=== PATIENT | female | born 1940 | race African-American/Black ===

== ENCOUNTER → 2016-05-15 | Outpatient (CLI) | payer OTHER, BC ==
--- NOTE | ~2016-05-15 | CARDNUC ---
[facility] [place] [address] CARDIAC NUCLEAR IMAGING REPORT Name: PARKERCHANDRAKANT JASSON Room #: REG [facility]#: [id number] Admission: 05/15/16 Attend Phys: Willis Cruz, Discharge: Date of : 44 Date of Service: 05/16/16 1710 Report #: [id number] THIS REPORT FOR: //name// CC: Rupal Cruz DATE OF SERVICE: 05/15/2016 This is a Lexiscan Cardiolite stress test. VASODILATOR GATED SPECT MYOCARDIAL PERFUSION IMAGING: Regadenoson. REFERRING PHYSICIAN: Willis Cruz MD [facility]. REFERRING [employer]P [employer]: Willis Cruz MD FAC. DATE OF STUDY: 05/15/2016 INDICATIONS FOR STUDY: Cardiomyopathy. RISK FACTORS: Age, hyperlipidemia, hypertension. CARDIAC HISTORY: Prior stroke from MRI. CARDIAC MEDICATIONS: Cholesterol medicine and blood pressure medicine, she does not know the name of them. GENDER: Female. PROCEDURE: The patient was given 0.4 mg of intravenous regadenoson (Lexiscan) administered over approximately 20 seconds. The patient did not complain of chest discomfort during the infusion. In response to complaints of chest discomfort the patient was not given intravenous aminophylline. At baseline the BP was 198/82 and the HR was 54; at completion of the regadenoson infusion the BP was 150/74 and the HR was 75. At completion of the recovery phase the BP was 157/74 and the HR was 69. Baseline EKG demonstrated sinus bradycardia with late transition in precordial R-wave and nonspecific ST-T abnormalities. There was a lot of motion artifact. On the resting EKG regadenoson demonstrated some additional ST segment depression that was suspicious for ischemia, but not diagnostic in that there was ST segment depression present at rest and the additional ST segment depression was nondiagnostic. Rhythm disturbances included rare VPCs seen on the monitor but not necessarily on the strips. Gated-SPECT myocardial perfusion imaging was performed using a 1-day imaging [facility] [place] [address] CARDIAC NUCLEAR IMAGING REPORT Name: CHANDRAKANT CANALES Room #: REG [facility].#: [id number] Admission: 05/15/16 Attend Phys: Willis Cruz, Discharge: Date of : 44 Date of Service: 05/16/16 1710 Report #: [id number] protocol and a single isotope technique. The 10.9 mCi of Tc-99m sestamibi was administered intravenously at rest; 28.5 mCi of Tc-99m sestamibi was administered intravenously within 20 seconds of the completion of the administration of regadenoson. Imaging was obtained in the supine position and when feasible, adjunctive stress imaging in the prone position was obtained. FINDINGS: The overall quality of the study was adequate. There was a little evidence of attenuation artifact. There was no evidence of abnormal extracardiac uptake of the radionuclide. The baseline imaging study demonstrated a very small mild apical defect and small mild to moderate intensity anteroapical defect. The imaging obtained following the administration of the vasodilator demonstrated a small mild apical defect or larger apical defect and a small to moderate in size, mild to moderate intensity anteroapical defect or larger anteroapical defect. These images demonstrated an old anteroapical myocardial infarction with a very small mild apical area of ischemia and a small mild anteroapical area of ischemia. On gated analysis the left ventricle demonstrated normal contractility with mild apical hypokinesis. The gated ejection fraction was 59%. The left ventricle was of normal size at rest and did not dilate significantly with administration of the vasodilator. The TID was 1.15. IMPRESSIONS: CLINICAL RESPONSE: Nonischemic. STRESS EKG RESPONSE: Nondiagnostic due to heart rate that was inadequate to exclude ischemia. MYOCARDIAL PERFUSION STUDY: Ischemic with evidence of a very small area of mild apical ischemia and a small mild area of anteroapical ischemia in the context of an old inferoapical infarct. FUNCTIONAL CAPACITY: Not assessed. CONCLUSIONS: The Lexiscan Cardiolite stress test demonstrates a very small area of mild apical ischemia and a small to moderate in size, mild area of anteroapical ischemia in the context of a prior old anteroapical myocardial infarction. Overall, this is a low to most moderate risk study. By: 1710 33 Nancy Mcarthur MD, FACC /nt
--- NOTE | ~2016-05-15 | 2DMMODE ---
[facility] [place] [address] 2 D/M-MODE ECHOCARDIOGRAM Name: CANALESCHANDRAKANT Room #: REG [facility]#: [id number] Admission: 05/15/16 Attend Phys: Willis Cruz, Discharge: Date of : 44 Date of Service: 05/16/16 0930 Report #: [id number] THIS REPORT FOR: //name// APPROVED REPORT Study performed: 05/15/2016 10:29:56 EXAM: Comprehensive 2D, Doppler, and color-flow Echocardiogram Patient Location: Out-Patient Blood Pressure: 168/95 mmHg HR: 70 bpm Indications Dyspnea 2D Dimensions RVDd: 31.41 mm LVEF(%): 52.53 (>50%) IVSd: 16.55 (7-11mm) LVOT Diam: 20.18 (18-24mm) LVDd: 40.20 mm PWd: 15.64 (7-11mm) Ascending Aorta: 27.85 mm LVDs: 29.51 (25-40mm) Aortic Root: 35.00 mm Martinez's LVEF: 52.53 % Volumes Left Atrial Volume (Systole) Single Plane 4CH: 37.22 mL Single Plane 2CH: 45.94 mL LA ESV Index: 25.00 mL/m2 Aortic Valve AoV Peak Alfonso.: 1.42 m/s AO Peak Gr.: 8.09 mmHg LV Max P.56 mmHg LV Max: 1.07 m/s Mitral Valve MV PHT: 90.36 ms MV E Max Alfonso.: 0.64 m/s E/A Ratio: 0.6 MV A Alfonso.: 1.10 m/s MV Decel. Time: 311.59 ms Pulmonary Valve PV Peak Alfonso.: 0.86 m/s PV Peak Gr.: 2.93 mmHg [facility] [place] [address] 2 D/M-MODE ECHOCARDIOGRAM Name: CHANDRAKANT CANALES Room #: REG [facility]#: [id number] Admission: 05/15/16 Attend Phys: Willis Cruz, Discharge: Date of : 44 Date of Service: 05/16/16 0930 Report #: [id number] Tricuspid Valve TR Peak Alfonso.: 2.35 m/s RAP Estimate: 5.00 mmHg TR Peak Gr.: 22.13 mmHg RVSP: 27.00 mmHg Left Ventricle The left ventricle is normal size. There is normal LV segmental wall motion. Moderate to severe concentric left ventricular hypertrophy. Left ventricular systolic function is normal. LVEF is 60-65%. Grade I - abnormal relaxation pattern. Right Ventricle The right ventricle is normal size. The right ventricular systolic function is normal. Atria The left atrium size is normal. The right atrium size is normal. Aortic Valve Aortic valve is mildly calcified. No aortic regurgitation is present. There is no aortic valvular stenosis. Mitral Valve Mitral valve leaflets are mildly thickened. Mild mitral annular calcification. Trace to mild mitral regurgitation. Tricuspid Valve The tricuspid valve is normal in structure. There is mild tricuspid regurgitation. The right atrial pressure is estimated at 5 mmHg. Estimated PAP is 27mmHg. Pulmonic Valve The pulmonary valve is normal in structure. Trace pulmonic regurgitation. Great Vessels The aortic root is normal in size. The ascending aorta is normal in size. IVC is normal in size and collapses >50% with inspiration. Pericardium There is no pericardial effusion. <Conclusion> LVEF is 60-65%. Moderate to severe concentric left ventricular hypertrophy. [facility] [address] [place] [address] 2 D/M-MODE ECHOCARDIOGRAM Name: CHANDRAKANT CANALES Room #: REG [facility]#: [id number] Admission: 05/15/16 Attend Phys: Willis Cruz, Discharge: Date of : 44 Date of Service: 05/16/16 0930 Report #: [id number] Grade I - abnormal relaxation pattern. There is normal LV segmental wall motion. Trace to mild mitral regurgitation. There is no aortic valvular stenosis. No aortic regurgitation is present. There is mild tricuspid regurgitation. The right atrial pressure is estimated at 5 mmHg. Estimated PAP is 27mmHg. <ELECTRONICALLY SIGNED> By: Willis Cruz MD, FAC 05/16/16929 9 9 Willis Cruz MD, [facility] /INF
== END ==
LOC: CV 04-17 12:19
DX: I42.9 Cardiomyopathy, unspecified (principal); I10 Essential (primary) hypertension; E78.5 Hyperlipidemia, unspecified

== ENCOUNTER 2016-09-11 16:21 | Inpatient (IN) | payer OTHER, BC ==
[~2016-09-11] VITALS: Ht 162.6 cm; Wt 48.5 kg
--- NOTE | ~2016-09-11 | EKG ---
[place] [address] [facility] [place] [address] ELECTROCARDIOGRAM REPORT Name: CHANDRAKANT CANALES Room #: 209-P ADM IN M.R.#: [id number] Admission: 09/11/16 Attend Phys: Bethel Bray Discharge: Date of : 44 Report #: [id number] THIS REPORT FOR: //name// [facility] ED Test Date: 2016-09-11 Test Time: 17:26:26 Pat Name: CHANDRAKANT CANALES Department: Room: 209 Gender: F End Finder Twisting Department: shyam : 1940 Requested By: Pat Castro Order Number: [id number] MD: Dontrell Cardoso Measurements Intervals [place] Rate: 106 P: 65 [place]: 145 QRS: -27 QRSD: 97 T: 97 QT: 361 QTc: 480 Interpretive Statements Sinus tachycardia LVH with secondary repolarization abnormality Anterior infarct, age indeterminate No previous ECG available for comparison Electronically Signed On 09-12-2016 17:05:52 CDT by Dontrell Cardoso [email or web address] <ELECTRONICALLY SIGNED> By: Dontrell Cardoso MD, [facility] 09/12/16 1705 D: 07/1725 25 Dontrell Cardoso MD, FACC /EPI
--- NOTE | ~2016-09-11 | HC ---
[facility] [place] [address] CONSULTATION Name: CHANDRAKANT CANALES Room #: 209-P ADM IN M.R.#: [id number] Admission: 09/11/16 Attend Phys: Bethel Bray Discharge: Date of : 44 Report #: [id number] THIS REPORT FOR: //name// CC: Rupal Bray DATE OF SERVICE: 09/12/2016 DATE OF SERVICE: 09/12/2016 PRIMARY MACHINE FEED OPERATOR: Ru Dos Santos M.D. CHIEF COMPLAINT: Abdominal pain. HISTORY OF PRESENT ILLNESS: The patient is a 76-year-old woman with a history of malignant hypertension and apparently known abdominal aortic aneurysm presented with some abdominal pain, discomfort symptoms. She reports no symptoms of chest pain or pressure. She had a CT scan of her abdomen, which demonstrated greater than 6 cm abdominal aortic aneurysm, which apparently is known to the patient, as she has seen Dr. Anderson as an outpatient. She has a longstanding history of hypertension. She has remote history of CVA. She denies any new neuro symptoms. She denies new headaches, blurry vision, syncope or presyncope. She has a history of coronary artery disease based on a mostly fixed stress test defect which was been managed medically by her diesel fitter mechanic, Dr. Dos Santos. She reports no chest pain or pressure. She does admit to shortness of breath and was found to have a large right-sided pleural effusion. Her ejection fraction is known to be normal. She denies palpitations, heart racing, skipping. She presents in sinus rhythm. Her ECG is nondiagnostic and that she has LVH with repolarization abnormality. PAST MEDICAL HISTORY: 1. Abdominal aortic aneurysm. 2. Hypertension. 3. Coronary artery disease. 4. Malignant hypertension. 5. History of cerebrovascular accident with left-sided weakness, residual. HOME MEDICATIONS: Include losartan 100 mg daily, Toprol-XL 50 mg daily, Synthroid 0.05 mg daily, atorvastatin 80 mg daily, Lasix 20 mg daily. [facility] [address] [place] [address] CONSULTATION Name: CHANDRAKANT CANALES Room #: 209-P [facility] ..#: [id number] Admission: 09/11/16 Attend Phys: Bethel Bray Discharge: Date of : 44 Report #: [id number] SOCIAL HISTORY: She is and tobacco use less than 100, no active. ALLERGIES: She has no known drug allergies. REVIEW OF SYSTEMS: GASTROINTESTINAL: Positive abdominal pain described as without symptoms of nausea or vomiting diffuse. GENERAL: No fevers or chills. PULMONARY: No history of new cough, positive shortness of breath. CARDIOVASCULAR: Positive shortness of breath, no chest pain. No palpitations. NEUROLOGIC: No syncope, seizures. HEMATOLOGIC: No anemia or bleeding disorders. SKIN: No rashes. PHYSICAL EXAMINATION: VITAL SIGNS: She presented hypertensive with blood pressure 185/136, this morning her blood pressure is 134/97, pulse is 87. GENERAL: This is a pleasant elderly female. She is a poor historian. She is acting appropriately, though answering questions appropriately. She is in no apparent distress. HEENT: Eyes are intact. No facial asymmetry. NECK: Supple. No jugular venous distention. There is no thyromegaly. CARDIOVASCULAR: Regular. I cannot hear a murmur or rub. Has positive S4. LUNGS: Clear to auscultation, diminished breath sounds in the bases bilaterally. ABDOMEN: Lightly palpated. There is no significant tenderness. EXTREMITIES: There is 1+ peripheral edema. SKIN: Warm and dry. Electrocardiogram demonstrates sinus rhythm, LVH. LABORATORY DATA: Hemoglobin is 13.3, and platelet count is 290,000. Sodium is 140, potassium 3.5, chloride is 101, CO2 is 26, BUN is 19, creatinine is 1.1. Troponin I is 0.23, 0.21 and 0.12. IMAGING: CT of the abdomen shows 6 x 6.3 diameter infrarenal abdominal aortic aneurysm 10 cm length. No retroperitoneal hemorrhage. CT pelvis unremarkable. Previous hysterectomy. Sodium is 140, potassium 2.5, chloride is 101, CO2 is 26, BUN is 19, creatinine is 1.1. ASSESSMENT AND PLAN: 1. Abdominal pain. Given that she does have a documented aortic aneurysm and has been seen by Vascular Surgery in the past with Dr. Anderson and I would notify him of her symptoms to see if he wants to manage her definitely. 2. Malignant hypertension. This blood pressure control has really important for her in the case of her peripheral vascular disease. We will continue [address] [address] CONSULTATION Name: CHANDRAKANT CANALES Room #: 209-P ADM IN M.R.#: [id number] Admission: 09/11/16 Attend Phys: Bethel Bray Discharge: Date of : 44 Report #: [id number] present medical therapy. It is well controlled at this point in time. 3. Acute diastolic heart failure. She has responded to IV Lasix. She may need to be on the higher dose on discharge of 40 mg daily. 4. Elevated troponin level, although she has a known fixed defect on stress testing, I do not think she has significant angina symptoms and I would focus more attention on her peripheral vascular disease and Dr. Dos Santos can manage her coronary artery disease as an outpatient certainly if she develops angina symptoms inpatient, we may need to change our direction of focus. 5. Hyperlipidemia. She will continue with aggressive treatment with a statin. By: 0843 [id number] Willis Cruz MD, FACC /nt
--- NOTE | ~2016-09-11 | EKG ---
[place] [address] [email or web address] [address] ELECTROCARDIOGRAM REPORT Name: CHANDRAKANT CANALES Room #: 209-P ADM IN M.R.#: [id number] Admission: 09/11/16 Attend Phys: Bethel Bray Discharge: Date of : 44 Report #: [id number] THIS REPORT FOR: //name// [facility] Test Date: 2016-09-12 Test Time: 06:01:15 Pat Name: CHANDRAKANT CANALES Department: Room: 209 P Gender: F Felling Bucking Supervisor: SHALA : 1940 Requested By: Demetrice Chaudhari Order Number: [id number] MD: Dontrell Cardoso Measurements Intervals [place] Rate: 91 P: 77 WI: 143 QRS: 3 QRSD: 101 T: 120 QT: 404 QTc: 498 Interpretive Statements Sinus rhythm Ventricular premature complex LVH with secondary repolarization abnormality Anterior Q waves, possibly due to LVH No previous ECG available for comparison Electronically Signed On 09-12-2016 17:14:41 CDT by Dontrell Cardoso [email or web address] <ELECTRONICALLY SIGNED> By: Dontrell Cardoso MD, [facility] 09/12/16 1714 0 0 Dontrell Cardoso MD, [facility] /EPI
--- NOTE | ~2016-09-11 | CNG ---
[facility] [place] [address] CYTO-NONGYN REPORT PROCEDURE Name: NATASHA SHERWOOD Room #: 429-P [facility] IN M.R.#: [id number] Admission: 09/11/16 Date of : 44 Discharge: 09/17/16 Report #: [id number] Path Case #: [id number] CYTOPATHOLOGY REPORT COLLECTION DATE: 09/14/2016 RECEIVED DATE: 09/17/2016 SUBMITTING PHYS: Dr. Bethel Bray OTHER PHYS: Dr. Rupal Warren CLINICAL HISTORY: N/V, Hypokalemia, epigastric pain. SPECIMEN(S) RECEIVED: A.Pleural fluid, Right * * * * * * * * * * * * FINAL DIAGNOSIS: A. Right Pleural fluid: - No malignant epithelial cells identified. Few mesothelial cells along with acute and chronic inflammatory cells present in a background of debris. PATHOLOGIST: Robyn Carbajal M.D. REPORT ELECTRONICALLY SIGNED BY: Robyn Carbajal M.D. DATE/TIME: 09/18/2016 15:23 * * * * * * * * * * * * GROSS PATHOLOGY: A. Pleural fluid, Right: The specimen is submitted unfixed, labeled "Natasha Sherwood". Received by the Cytology Department is 30 mL of clear yellow fluid. One ThinPrep slide and a cell block were prepared. (clt 09.17.2016) SAND CONDITIONER(S): DULCE Lorenz(ASCP) INITIAL CPT CODE(S): A; 91277, 43622 Professional services performed by [facility] at [facility] [address], [place] [address] Technical services performed by [facility] at [address] [place] [address]., [address], [place] [address]. [facility] [address] [place] [address], [address] [place], [place] [address] [place] [address] [place] [address] CYTO-NONGYN REPORT PROCEDURE Name: PARKERNATASHAMER SPAULDING Room #: 429-P DIS IN M.R.#: [id number] Admission: 09/11/16 Date of : 44 Discharge: 09/17/16 Report #: [id number] Path Case #: [id number] PHONE: [phone] DIRECTOR: Delano Parker M.D. * * * END OF REPORT * * *
[2016-09-11 16:23] VITALS: BP 185/136
[2016-09-11 17:01] LABS: ABSOLUTE NEUTROPHILS 5.1 thou/uL (1.4-8.2); BASOPHILS 0.6 % (0.0-2.0); EOSINOPHILS 0.1 % (0.0-3.0); HEMATOCRIT 39.3 % (37.0-47.0); HEMOGLOBIN 13.3 gm/dL (12.0-15.0); LYMPHOCYTES 9.9 % (24.0-44.0); MCH 29.2 pg (26.0-34.0); MCHC 33.9 g/dL (28.0-37.0); MCV 86.2 fL (80.0-100.0); MONOCYTES 4.9 % (1.0-8.0); PLATELET COUNT 290 thou/uL (150-400); POLYS 84.5 % (36.0-66.0); RBC 4.56 mil/uL (4.20-5.00); RDW 15.7 % (10.5-14.5); WBC 6.1 thou/uL (4.0-11.0)
[2016-09-11 17:10] LABS: MANUAL DIFF NO
[2016-09-11 17:13] LABS: ALBUMIN 3.3 g/dL (3.4-5.0); CALCIUM 9.3 mg/dL (8.5-10.1); CREATININE 1.3 mg/dL (0.6-1.0); TOTAL BILIRUBIN 1.7 mg/dL (<0.1-1.0); TOTAL PROTEIN 8.2 g/dL (6.4-8.2)
[2016-09-11 17:17] LABS: POTASSIUM 2.8 mmol/L (3.5-5.1)
[2016-09-11] MEDS ORDERED: METOPROLOL SUCC50 MG PO (17:18)
[2016-09-11] MEDS ORDERED: LASIX 20 MG TAB20 MG PO (17:19)
[2016-09-11] MEDS ORDERED: LEVOTHYROXINE0.05 MG PO (17:19)
[2016-09-11] MEDS ORDERED: ATORVASTATIN CA80 MG PO (17:19)
[2016-09-11] MEDS ORDERED: COZAAR 50 MG TA50 M2 PO (17:19)
[2016-09-11] MEDS ORDERED: LOSARTAN-HCTZ1 EAC1 PO (17:21)
[2016-09-11] MEDS ORDERED: TOPROL XL100 MG PO (17:21)
[2016-09-11 20:17] VITALS: BP 142/102
[2016-09-11 20:30] VITALS: BP 142/102
[2016-09-11 20:44] LABS: URINE BLOOD TRACE (Negative); URINE COLOR YELLOW; URINE GLUCOSE-RANDOM* NEGATIVE (Negative); URINE KETONES TRACE (Negative); URINE LEUKOCYTES-REFLEX 1+ (Negative); URINE PROTEIN (DIPSTICK) 2+ (Negative); URINE SPECIFIC GRAVITY 1.025 (1.003-1.035)
[2016-09-11 20:47] LABS: ICTOTEST (BILI CONFIRMATORY) Negative (Negative); URINE BILIRUBIN NEGATIVE (Negative)
[2016-09-11 20:53] LABS: CASTS None Seen /LPF (None Seen); CRYSTALS None Seen /LPF (None Seen); SQUAMOUS 4-10 Moderate /LPF (0-3)
[2016-09-11 20:59] LABS: URINE RBC 0-2 Rare /HPF (0-2); URINE WBC-REFLEX 6-15 Few /HPF (0-5)
[2016-09-11 21:15] VITALS: BP 167/120
[2016-09-11 22:00] VITALS: BP 180/133
[2016-09-12 04:07] VITALS: BP 151/120
[2016-09-12 05:47] LABS: CALCIUM 9.2 mg/dL (8.5-10.1); CREATININE 1.1 mg/dL (0.6-1.0); POTASSIUM 3.5 mmol/L (3.5-5.1); TROPONIN-I 0.23 ng/mL (<0.04-0.07)
[2016-09-12 08:00] VITALS: BP 134/97
[2016-09-12 11:50] VITALS: BP 151/120
[2016-09-12 15:50] VITALS: BP 143/107
[2016-09-12 19:36] VITALS: BP 136/84
[2016-09-13] VITALS (8 sets, daily range): BP systolic 116–158; BP diastolic 73–104
[2016-09-14] VITALS (38 sets, daily range): BP systolic 96–135; BP diastolic 56–91
[2016-09-14 09:45] LABS: HEMATOCRIT 38.3 % (37.0-47.0); HEMOGLOBIN 12.7 gm/dL (12.0-15.0); MCH 29.1 pg (26.0-34.0); MCHC 33.1 g/dL (28.0-37.0); RBC 4.35 mil/uL (4.20-5.00)
[2016-09-14 10:02] LABS: ALBUMIN 2.3 g/dL (3.4-5.0); CALCIUM 7.9 mg/dL (8.5-10.1); CREATININE 0.9 mg/dL (0.6-1.0); PHOSPHORUS 3.5 mg/dL (2.5-4.9)
[2016-09-14 11:17] LABS: INR 1.2; PROTIME 12.6 Seconds (9.3-11.4)
[2016-09-15 04:04] VITALS: BP 126/78
[2016-09-15 07:05] VITALS: BP 127/80
[2016-09-15 09:48] LABS: CLARITY CLEAR; COLOR YELLOW; TOTAL VOLUME 53 mL
[2016-09-15 10:00] LABS: BF NUCLEATED CELLS 205; BF RBC 144
[2016-09-15 10:52] LABS: BF COMMENTS MONOCYTES 02; BF MACROPHAGE 2; BF NEUTROPHILS 10; MANUAL DIFF YES
[2016-09-15 11:29] VITALS: BP 123/65
[2016-09-15 15:48] VITALS: BP 109/57
[2016-09-15 19:02] VITALS: BP 132/83
[2016-09-16 01:07] LABS: BODY FLUID ALBUMIN 1.9 g/dL (()); BODY FLUID AMYLASE 46 U/L (()); BODY FLUID GLUCOSE 145 mg/dL (()); BODY FLUID LDH 156 IU/L (()); BODY FLUID PROTEIN 3.4 g/dL (())
[2016-09-16 03:33] VITALS: BP 144/92
[2016-09-16 07:43] VITALS: BP 147/91
[2016-09-16 13:10] LABS: HEMATOCRIT 37.9 % (37.0-47.0); HEMOGLOBIN 12.5 gm/dL (12.0-15.0); MANUAL DIFF YES; MCH 29.1 pg (26.0-34.0); MCV 88.2 fL (80.0-100.0); PLATELET COUNT 202 thou/uL (150-400); RDW 16.2 % (10.5-14.5)
[2016-09-16 13:24] LABS: ALBUMIN 2.2 g/dL (3.4-5.0); CALCIUM 7.8 mg/dL (8.5-10.1); MAGNESIUM 1.2 mg/dL (1.8-2.4); POTASSIUM 3.7 mmol/L (3.5-5.1); TOTAL BILIRUBIN 0.7 mg/dL (<0.1-1.0); TOTAL PROTEIN 6.1 g/dL (6.4-8.2)
[2016-09-16 13:36] LABS: ABSOLUTE NEUTROPHILS 7.1 thou/uL (1.4-8.2); ANISOCYTOSIS 1+; NUCLEATED RBCS 1 /100WBC; POLYCHROMASIA OCCASIONAL; TOTAL CELL COUNT 100
[2016-09-16 19:22] VITALS: BP 122/91
[2016-09-17 05:00] VITALS: BP 124/73
[2016-09-17 08:00] VITALS: BP 145/85
[2016-09-17] MEDS ORDERED: COZAAR100 MG PO (10:01)
[2016-09-17] MEDS ORDERED: CEFDINIR300 MG PO (10:01)
[2016-09-17] MEDS ORDERED: LEVOTHYROXIN0.075 MG PO (10:02)
[2016-09-17] MEDS ORDERED: ASPIRIN325 PO (10:02)
[2016-09-17 12:47] VITALS: BP 145/85
[2016-09-17 13:52] VITALS: BP 145/85
== END 2016-09-17 18:16 | disposition home health service (06) | DRG 268 ==
LOC: ER 16:21 → EROBS 20:01 → 2N 20:01 → ICU 09-13 21:50 → 4W 09-14 18:50 → 4E 09-16 17:55
PROVIDERS: Hospitalist; Nurse Practitioner; Physician Assistant
PROC: B4181ZZ Fluoroscopy of Bilateral Renal Arteries using Low Osmolar Contrast (ICD-10-PCS; principal; 2016-09-13)
PROC: 02HV33Z Insertion of Infusion Device into Superior Vena Cava, Percutaneous Approach (ICD-10-PCS; 2016-09-13)
PROC: 04V03DZ Restriction of Abdominal Aorta with Intraluminal Device, Percutaneous Approach (ICD-10-PCS; 2016-09-13)
PROC: 0W993ZZ Drainage of Right Pleural Cavity, Percutaneous Approach (ICD-10-PCS; 2016-09-14)
PROC: BB4BZZZ Ultrasonography of Pleura (ICD-10-PCS; 2016-09-14)
DX: I71.02 Dissection of abdominal aorta (principal); I50.33 Acute on chronic diastolic (congestive) heart failure; J90 Pleural effusion, not elsewhere classified; N39.0 Urinary tract infection, site not specified; I69.954 Hemiplegia and hemiparesis following unspecified cerebrovascular disease affecting left non-dominant side; K52.9 Noninfective gastroenteritis and colitis, unspecified; E87.6 Hypokalemia; I11.0 Hypertensive heart disease with heart failure; J45.909 Unspecified asthma, uncomplicated; E78.5 Hyperlipidemia, unspecified; E03.9 Hypothyroidism, unspecified; I70.1 Atherosclerosis of renal artery; I25.10 Atherosclerotic heart disease of native coronary artery without angina pectoris; Z90.710 Acquired absence of both cervix and uterus; Z79.82 Long term (current) use of aspirin; Z79.899 Other long term (current) drug therapy; Z87.891 Personal history of nicotine dependence; Z82.49 Family history of ischemic heart disease and other diseases of the circulatory system
CPT/HCPCS: 10045; 10078; 10081; 10183; 27001; 47375; 48888; 50101; 50386; 50455; 54118; 55022; 56524; 56526; 56527; 56668; 56760; 57093; 62110; 62900; 65002; 65020; 65043; 65090; 70005

== ENCOUNTER 2017-05-24 15:23 | Inpatient (IN) | payer OTHER, BC ==
[~2017-05-24] VITALS: Ht 162.6 cm; Wt 77.6 kg
--- NOTE | ~2017-05-24 | HC ---
[facility] [place] [address] CONSULTATION Name: CHANDRAKANT CANALES Room #: 202-P ADM IN M.R.#: [id number] Admission: 05/24/17 Attend Phys: Martinez Oro MD Discharge: Date of : 44 Report #: [id number] THIS REPORT FOR: //name// CC: Rupal Oro DATE OF SERVICE: 05/24/2017 HISTORY OF PRESENT ILLNESS: The patient is a 77-year-old black female who was admitted in transfer from [facility] for consideration of coronary bypass surgery. The patient has a long history of hypertension and hyperlipidemia. She has been followed by my partner, Dr. Cruz. She apparently had a nuclear stress test in 2017 that showed a small apical defect. She has a long history of edema and has been on Lasix. Recently, she complained of increasing shortness of breath and edema. She underwent an echocardiogram recently that showed an ejection fraction of only 20% with left atrial enlargement, moderate tricuspid insufficiency, right atrial enlargement. She is felt to have a cardiomyopathy and Dr. Cruz recommended cardiac catheterization. The patient denied any recent chest pain, palpitations, syncope. She has been short of breath and has edema. She is brought to [place] as an outpatient earlier today and I performed elective cardiac catheterization from the right femoral artery. Results confirmed an ejection fraction of only 20%. Left ventricular end-diastolic pressure was elevated at 30. She is found to have severe coronary artery disease and what appeared to be a distal subtotal 90% stenosis of the left main artery. The ostial LAD had a 90% stenosis. The mid circumflex was a codominant vessel and had a 50% stenosis. The first marginal branch had a 70% stenosis. The distal posterior descending branch had a 70% stenosis. The codominant right coronary artery appeared proximally occluded and filled by bridging collaterals from the left coronary artery. The results were discussed with the patient and her . She is felt to have an ischemic cardiomyopathy including left main stenosis. I recommended she be considered for coronary artery bypass surgery. She is transferred to [facility] for cardiovascular consultation. PAST MEDICAL HISTORY: Otherwise significant for previous placement of an abdominal aortic aneurysm stent graft. She has had a hysterectomy, tonsillectomy, hypertension, hyperlipidemia. She apparently had a stroke years ago and activity is somewhat limited. MEDICATIONS: Consist of Lipitor, Lasix, Synthroid, losartan, metoprolol, potassium. ALLERGIES: SHE HAD A PREVIOUS INTOLERANCE TO EGG YOLK. FAMILY HISTORY: Significant for heart disease in her father. [address] [address] CONSULTATION Name: CHANDRAKANT CANALES Room #: 202-P [facility] IN M.R.#: [id number] Admission: 05/24/17 Attend Phys: Martinez Oro MD Discharge: Date of : 44 Report #: [id number] SOCIAL HISTORY: She is . She and her live in [place], [place]. No history of smoking or alcohol abuse. REVIEW OF SYSTEMS: She has had no history of asthma, peptic ulcer disease, liver disease, kidney disease, cancer, psychiatric illness, chronic skin condition. PHYSICAL EXAMINATION: VITAL SIGNS: Blood pressure 110/60, pulse 60. No carotid bruits. NECK: Supple. HEENT: Mucous membranes moist. She is anicteric. CHEST: Clear to auscultation. CARDIAC: Regular rate and rhythm, grade 2 systolic ejection murmur. ABDOMEN: Obese, soft, nontender. EXTREMITIES: Had edema up to the mid tibial area. Dorsalis pedis pulse could not be palpated. SKIN: Cool and dry. LABORATORY WORK: Sodium 144, potassium is 2.8, BUN 13, creatinine 1.1, glucose 96. Her cholesterol 172, triglyceride 64, HDL 30, LDL 130. White blood cell count 3.6, hematocrit 34.6. IMPRESSION AND RECOMMENDATIONS: 1. Coronary artery disease including left main stenosis. Recommend consideration for coronary artery bypass surgery. 2. Cardiomyopathy. The patient has been on a beta saurav and ARB. I would recommend adding spironolactone. If ejection fraction continues to be less than 35%, I would consider elective implantation of defibrillator. 3. Hypertension. The patient has been on an ARB and beta saurav. 4. Hyperlipidemia. The patient is on a statin drug. 5. Previous placement of an abdominal aortic aneurysm stent graft. 6. History of stroke. Would recommend preop carotid Doppler study. <ELECTRONICALLY SIGNED> By: Ru Dos Santos MD, FACC 05/27/17 1700 1611 [id number] Ru Dos Santos MD, FACC /nt
[~2017-05-24 15:23] MED LIST: ASPIRIN325 PO; ATORVASTATIN CA80 MG PO; CEFDINIR300 MG PO; COZAAR 50 MG TA50 M2 PO; COZAAR100 MG PO; LASIX 20 MG TAB20 MG PO; LEVOTHYROXIN0.075 MG PO; LEVOTHYROXINE0.05 MG PO; LOSARTAN-HCTZ1 EAC1 PO; METOPROLOL SUCC50 MG PO; TOPROL XL100 MG PO
[2017-05-24 21:04] VITALS: BP 153/102
[2017-05-25 00:20] VITALS: BP 139/99
[2017-05-25 04:53] VITALS: BP 143/89
[2017-05-25 08:00] VITALS: BP 155/95
[2017-05-25 10:38] LABS: URINE BILIRUBIN NEGATIVE (Negative); URINE BLOOD 1+ (Negative); URINE CLARITY CLEAR; URINE COLOR YELLOW; URINE GLUCOSE-RANDOM* NEGATIVE (Negative); URINE KETONES NEGATIVE (Negative); URINE LEUKOCYTES-REFLEX NEGATIVE (Negative); URINE NITRITE-REFLEX NEGATIVE (Negative); URINE PROTEIN (DIPSTICK) NEGATIVE (Negative); URINE UROBILINOGEN 0.2 E.U./dl (0.2-1.0)
[2017-05-25 10:46] LABS: BACTERIA-REFLEX 1-9 Few /HPF (None Seen); CASTS None Seen /LPF (None Seen); CRYSTALS None Seen /LPF (None Seen); SQUAMOUS 0-3 Few /LPF (0-3); URINE RBC 3-10 Few /HPF (0-2); URINE WBC-REFLEX None Seen /HPF (0-5)
[2017-05-25 11:34] LABS: ABSOLUTE NEUTROPHILS 4.5 thou/uL (1.4-8.2); BASOPHILS 0.8 % (0.0-2.0); EOSINOPHILS 0.9 % (0.0-3.0); HEMATOCRIT 35.6 % (37.0-47.0); HEMOGLOBIN 11.8 gm/dL (12.0-15.0); LYMPHOCYTES 15.5 % (24.0-44.0); MCH 28.6 pg (26.0-34.0); MCHC 33.2 g/dL (28.0-37.0); MCV 86.2 fL (80.0-100.0); MONOCYTES 6.6 % (1.0-8.0); PLATELET COUNT 252 thou/uL (150-400); POLYS 76.2 % (36.0-66.0); RBC 4.13 mil/uL (4.20-5.00); RDW 19.1 % (10.5-14.5); WBC 5.9 thou/uL (4.0-11.0)
[2017-05-25 11:43] LABS: CREATININE 1.1 mg/dL (0.6-1.0); POTASSIUM 3.6 mmol/L (3.5-5.1)
[2017-05-25 12:00] VITALS: BP 146/95
[2017-05-25 16:00] VITALS: BP 159/92
[2017-05-25 19:08] VITALS: BP 132/79
[2017-05-26 03:16] VITALS: BP 153/93
[2017-05-26 03:52] LABS: ABSOLUTE NEUTROPHILS 3.6 thou/uL (1.4-8.2); BASOPHILS 0.5 % (0.0-2.0); EOSINOPHILS 2.4 % (0.0-3.0); HEMATOCRIT 34.6 % (37.0-47.0); HEMOGLOBIN 11.3 gm/dL (12.0-15.0); MCH 28.4 pg (26.0-34.0); MCHC 32.5 g/dL (28.0-37.0); MCV 87.1 fL (80.0-100.0); MONOCYTES 6.9 % (1.0-8.0); PLATELET COUNT 220 thou/uL (150-400); POLYS 70.2 % (36.0-66.0); RBC 3.97 mil/uL (4.20-5.00); RDW 19.5 % (10.5-14.5); WBC 5.2 thou/uL (4.0-11.0)
[2017-05-26 04:01] LABS: CALCIUM 8.6 mg/dL (8.5-10.1); CREATININE 1.1 mg/dL (0.6-1.0); POTASSIUM 3.2 mmol/L (3.5-5.1)
[2017-05-26 07:25] VITALS: BP 156/97
[2017-05-26 11:40] VITALS: BP 122/81
[2017-05-26 15:26] VITALS: BP 134/78
[2017-05-26 20:15] VITALS: BP 115/59
[2017-05-27 05:39] VITALS: BP 105/60
[2017-05-27 07:20] VITALS: BP 117/62
[2017-05-27] MEDS ORDERED: CLOPIDOGREL75 MG PO (09:02)
[2017-05-27 11:43] VITALS: BP 108/59
[2017-05-27 15:42] VITALS: BP 120/61
[2017-05-27 15:47] VITALS: BP 120/61
[2017-05-27] MEDS ORDERED: LASIX 40 MG TAB40 M2 PO (17:31)
[2017-05-27] MEDS ORDERED: COREG6.25 MG PO (17:32)
[2017-05-27] MEDS ORDERED: POTASSIUM20 PO (17:32)
== END 2017-05-27 19:24 | disposition home or self-care (01) | DRG 302 ==
LOC: 2N 15:23
PROVIDERS: Family Medicine
DX: I25.110 Atherosclerotic heart disease of native coronary artery with unstable angina pectoris (principal); I50.21 Acute systolic (congestive) heart failure; G93.40 Encephalopathy, unspecified; R41.0 Disorientation, unspecified; I11.0 Hypertensive heart disease with heart failure; J45.909 Unspecified asthma, uncomplicated; E78.5 Hyperlipidemia, unspecified; E03.9 Hypothyroidism, unspecified; I25.5 Ischemic cardiomyopathy; Z88.8 Allergy status to other drugs, medicaments and biological substances; Z79.899 Other long term (current) drug therapy; Z79.82 Long term (current) use of aspirin; Z90.710 Acquired absence of both cervix and uterus; Z86.73 Personal history of transient ischemic attack (TIA), and cerebral infarction without residual deficits; Z82.49 Family history of ischemic heart disease and other diseases of the circulatory system
CPT/HCPCS: 10081

== ENCOUNTER 2017-05-31 18:52 | Emergency (ER) | payer OTHER, BC ==
[~2017-05-31] VITALS: Ht 162.6 cm; Wt 77.1 kg
--- NOTE | ~2017-05-31 | EKG ---
[address] [address] ELECTROCARDIOGRAM REPORT Name: CHANDRAKANT CANALES Room #: DEP [facility]#: [id number] Admission: 05/31/17 Attend Phys: Discharge: 05/31/17 Date of : 44 Report #: [id number] THIS REPORT FOR: //name// [facility] ED Test Date: 2017-05-31 Test Time: 19:49:48 Pat Name: CHANDRAKANT CANALES Department: Room: Gender: F Medical Anthropology Director: grant : 1940 Requested By: Tawny Stearns Order Number: [id number] MD: Walter Quinn Measurements Intervals [place] Rate: 70 P: 63 AR: 121 QRS: 55 QRSD: 110 T: 156 QT: 411 QTc: 444 Interpretive Statements Sinus rhythm Anterior infarct, old Compared to ECG 09/12/2016 06:01:15 Electronically Signed On 06-01-2017 12:11:07 CDT by Walter Quinn [email or web address] <ELECTRONICALLY SIGNED> By: Walter Quinn MD 06/01/17 121 48 48 Walter Quinn MD /MICHELLE
[~2017-05-31 18:52] MED LIST changes: +CLOPIDOGREL75 MG PO; +COREG6.25 MG PO; +LASIX 40 MG TAB40 M2 PO; +POTASSIUM20 PO
[2017-05-31] MEDS ORDERED: VITAMIN D3400 UNIT PO (19:05)
[2017-05-31] MEDS ORDERED: ASPIR 8181 M1 PO (19:06)
[2017-05-31 19:46] LABS: ABSOLUTE NEUTROPHILS 3.5 thou/uL (1.4-8.2); BASOPHILS 0.8 % (0.0-2.0); EOSINOPHILS 1.4 % (0.0-3.0); HEMATOCRIT 29.5 % (37.0-47.0); HEMOGLOBIN 9.9 gm/dL (12.0-15.0); LYMPHOCYTES 17.5 % (24.0-44.0); MCH 28.9 pg (26.0-34.0); MCHC 33.4 g/dL (28.0-37.0); MCV 86.5 fL (80.0-100.0); MONOCYTES 10.1 % (1.0-8.0); PLATELET COUNT 285 thou/uL (150-400); POLYS 70.2 % (36.0-66.0); RBC 3.41 mil/uL (4.20-5.00); RDW 19.3 % (10.5-14.5)
[2017-05-31 19:59] LABS: ANION GAP 10 mmol/L (7-16); BUN 22 mg/dL (7-18); CALCIUM 8.9 mg/dL (8.5-10.1); CHLORIDE 106 mmol/L (98-107); CO2 22 mmol/L (21-32); CREATININE 1.4 mg/dL (0.6-1.0); GLUCOSE 126 mg/dL (74-106); POTASSIUM 4.3 mmol/L (3.5-5.1); SODIUM 138 mmol/L (136-145)
[2017-05-31 20:01] LABS: TROPONIN-I < 0.04 ng/mL (<0.06)
[2017-05-31 20:17] LABS: ANISOCYTOSIS 2+; BURR CELLS OCCASIONAL; TARGET CELLS OCCASIONAL
[2017-05-31] MEDS ORDERED: ALDACTONE25 MG PO (20:42)
== END 2017-05-31 21:34 | disposition home or self-care (01) ==
LOC: ER 18:52
PROVIDERS: Emergency Medicine
DX: I11.0 Hypertensive heart disease with heart failure (principal); I50.9 Heart failure, unspecified; R06.00 Dyspnea, unspecified; J45.909 Unspecified asthma, uncomplicated; E78.5 Hyperlipidemia, unspecified; E03.9 Hypothyroidism, unspecified; Z86.73 Personal history of transient ischemic attack (TIA), and cerebral infarction without residual deficits